=== PATIENT | male | born 1955 | race Caucasian/White ===

== ENCOUNTER 2021-09-30 11:29 | Outpatient (REF) | payer MEDICAID, SELFPAY ==
[2021-09-30 12:02] LABS: MANUAL DIFF FLAG NO
[2021-09-30 12:12] LABS: Basophils Percent Auto 0.4 % (0-2); Eosinophils Absolute Auto 0.1 X10*3/uL (0.0-0.4); Eosinophils Percent Auto 0.6 % (0-4); Hematocrit 43.7 % (42.0-52.0); Hemoglobin 14.1 g/dl (14.0-18.0); Imm Gran Abs Auto 0.03 X10*3/uL (0.00-0.03); Imm Gran Pct Auto 0.3 % (0.0-0.4); Lymphocytes Absolute Auto 0.8 X10*3/uL (1.2-4.9); Mean Corpuscular HGB Conc 32.3 g/dl (31.0-36.0); Mean Corpuscular Volume 89.9 fL (80.0-98.0); Monocytes Absolute Auto 0.6 X10*3/uL (0.1-1.2); Monocytes Percent Auto 6.8 % (2-11); Neutrophils Absolute Auto 7.5 x10*3/uL (2.0-8.3); Neutrophils Percent Auto 82.9 % (45-73); Platelet Count 278 X10*3/uL (160-400); Red Blood Count 4.86 X10*6/uL (4.60-5.80); Red Cell Distribution Width 14.1 % (11.0-16.0)
[2021-09-30 12:20] LABS: Estimated Average Glucose 111 mg/dL; Hemoglobin A1c % 5.5 %
[2021-09-30 12:35] LABS: Alanine Aminotransferase 21 U/L (0-40); Albumin Level 4.5 g/dL (3.5-5.0); Alkaline Phosphatase 102 U/L (39-117); Anion Gap 14 (12-20); Aspartate Amino Transferase 31 U/L (5-37); Bilirubin Total 0.8 mg/dL (0.0-1.0); Blood Urea Nitrogen 14 mg/dL (9-16); Calcium 9.8 mg/dL (8.4-10.2); Carbon Dioxide 30 mmol/L (22-29); Chloride 102 mmol/L (96-108); Cholesterol 152 mg/dL; Estimated Glomerular Filt Rate > 60; Glucose Random 105 mg/dL (60-115); HDL Cholesterol 58 mg/dL; LDL Cholesterol Calculated 80 mg/dl; Potassium 4.2 mmol/L (3.3-5.1); Sodium 142 mmol/L (135-145); Total Protein 8.1 g/dL (6.5-8.0); Triglycerides 71 mg/dL
[2021-10-02 15:47] LABS: TS Negative Control Passed; TS Panel A 0; TS Panel B 0; TS Positive Control Passed; TSpotTB Negative (Negative)
[2021-10-03 14:42] LABS: HIV RNA PCR Qn Copies NOT DETECTED copies/mL (NOT DETECTED); HIV RNA PCR Qn Log Copies NOT DETECTED (NOT DETECTED)
[2021-10-03 16:41] LABS: Absolute CD3 Count 497 cells/uL (840-3060); Absolute CD4 Count 186 cells/uL (490-1740); Absolute CD8 Count 291 cells/uL (180-1170); Absolute Lymphocytes 839 cells/uL (850-3900); CD4 CD8 Ratio 0.64 (0.86-5.00); Percent CD3 Cells 59 % (57-85); Percent CD4 Cells 22 % (30-61); Percent CD8 Cells 35 % (12-42)
== END 2021-09-30 11:30 | disposition home or self-care (01) ==
LOC: HO.LAB 11:29
PROVIDERS: Visit Provider Registered Nurse Community Health
DX: Z11.1 Encounter for screening for respiratory tuberculosis (principal); B20 Human immunodeficiency virus [HIV] disease
CPT/HCPCS: 80053; 80061; 83036; 85025; 86140; 86359; 86360; 86481; 87536

== ENCOUNTER 2023-01-26 13:44 | Emergency (ER) | payer MEDICAID, SELFPAY ==
[2023-01-26 13:50] VITALS: BP 160/82; PULSE 92; O2SAT 97
[2023-01-26 13:55] VITALS: BP 110/78; PULSE 89; RESP 18; TEMP 36.6; O2SAT 95; BMI 26.6
--- NOTE | 2023-01-26 13:56 | PC.NURSE ---
security at bedside to change pt over, belongings in decon
[2023-01-26 13:58] VITALS: PULSE 89
--- NOTE | 2023-01-26 15:07 | ED.GENADULT ---
HPI - General Adult General Chief complaint: ETOH/Substance Use Stated complaint: OVERDOSE Time Seen by Provider: 01/26/23 14:39 Source: patient, EMS, RN notes reviewed and old records reviewed Mode of arrival: EMS History of Present Illness HPI narrative: 67-year-old male with a past medical history of polysubstance abuse presenting to the ED via EMS s/p accidental heroin overdose [employer]. Patient was discharged from [facility] this morning. Patient admits to snorting 2 bags of heroin & taking 4 pills of 5 mg Percocet. patient was given 4 mg of intranasal Narcan by bystander with positive result. Denies SI/HI. Denies injury/ fall or trauma, headache, abdominal pain, chest pain/shortness of breath. Related Data Allergies Allergy/AdvReac Type Severity Reaction Status Date / Time No Known Drug Allergies Allergy Unknown UNKNOWN Unverified 01/29/20 15:36 Review of Systems Review of Systems: Constitutional: No Fever, No Chills, No Fatigue, No Malaise ENT/Mouth: No sore throat, No Rhinorrhea, No Swallowing Difficulty Eyes: No Eye Pain, No Swelling, No Redness, No Vision Changes Cardiovascular: No Chest Pain, No SOB, No Palpitations Respiratory: No Cough, No Dyspnea Gastrointestinal: No Nausea, No Vomiting, No Diarrhea, No Constipation, No Abdominal pain Musculoskeletal: No joint pain, No Myalgias Skin: No Skin Lesions, No rash Neuro: No Weakness, No Headache Psych: No Anxiety/Panic, No Depression, No SI/HI/AH/VH,+ Social Issues Yes all other systems are reviewed and are negative Constitutional: Constitutional: Reports as per [facility] Past Medical History Attestation statement: The following information was validated with the patient. Source: old records reviewed Social History Social History Advance Directives: No Physical Exam ED Vital Signs: Vital Signs - 24 hr 01/26/23 13:55 Temperature 97.9 F Pulse Rate 89 Respiratory Rate 18 Blood Pressure 110/78 Pulse Oximetry 95 Oxygen Delivery Method Room Air BMI result Body Mass Index 26.6 Const General: cooperative, no acute distress, alert and awake Orientation/consciousness: patient oriented x3 Limitations: no limitations HENMT Head: Yes normal to inspection, Yes atraumatic, No Barahona's sign and No raccoon eyes Ears: hearing grossly normal bilaterally General nose exam: Normal external nose present Face and sinus: Yes normal facial exam Throat: Yes posterior oropharynx normal Eyes General: appearance normal, both eyes and all related structures Pupils: Equal, round and reactive pupils present and Pinpoint pupils bilaterally EOM: EOMs intact bilaterally Neck Neck: Yes normal visual inspection and Yes no meningeal signs Resp Effort & Inspection: normal respiratory effort and no respiratory distress Auscultation: clear to auscultation bilaterally Cardio Rate: regular rate Heart sounds: S1 normal heart sound present and S2 normal heart sound present GI Inspection: Yes normal to inspection Palpation (GI): Soft to palpation, nontender, no guarding and not rigid General: Yes no CVA tenderness Back/Spine/Pelvis Other: No midline cervical/thoracic/lumbar spinous tenderness/step-off or deformity Back: no CVA tenderness Skin Rashes: no rashes Wounds: no wounds Neuro General: patient oriented x3, gait normal, tone normal, moves all extremities, no meningeal signs and CN's II-XI intact bilaterally Cranial nerves: Yes CN's II-XII intact bilaterally and Yes Equal, round and reactive pupils present Gait exam (Neuro): Normal gait present Extrem General: Yes normal to inspection Psych Attitude: cooperative Thought content: suicidality and no homicidality Course Course Course Narrative: recovery team evaluated patient, declined any services, patient also would not be accepted to any detox is at this time as was just discharged from [facility] this AM. patient will be discharged home with Narcan to go > patients Aunt is in the ED with him. Patient's friend will be picking him up Results discussed with patient including worrisome signs and symptoms and strict return precautions, and when to return to the emergency department. They verbalized understanding and feel safe for discharge at this time. Medications Administered Discontinued Medications Generic Name Dose Route Start Last Admin Trade Name Freq PRN Reason Stop Dose Admin Naloxone HCl 8 mg 01/26/23 15:13 01/26/23 16:15 Naloxone Hcl Nasal Take Home 4 Mg [place] NOSTRILALT 01/26/23 15:14 8 mg ONCE ONE Administration Medical Decision Making Medical Decision Making [facility] Narrative: 67-year-old male with a past medical history of polysubstance abuse presenting to the ED via EMS s/p accidental heroin overdose [employer] INS[employer]. On exam vital signs stable, NAD, awake and alert since ED arrival, cooperative, ambulating with steady gait. denies SI/HI. Patient abdomen he only took 4 pills of Percocet, patient is clear, minimal risk/concern for Tylenol overdose. will observe and re-evaluate Please refer to course for remaining clinical decision making, interpretation of labs/imaging results, and discussions with consultants and/or family members. Differential Diagnosis Differential Diagnoses: The differential diagnosis associated with the presentation includes As above Admission/Observation Consideration of admission/observation: Escalation of care including admission/observation considered Lab Data MDM Lab Attestation statement: I reviewed the patient's lab results. Radiology Impression Discussion of test interpretation with radiology: I have reviewed the radiologist's reading. External Record Review External record reviewed: Inpatient record, Office record, Outpatient record, Prior outpatient labs, Prior outpatient radiology, Primary care record and Outside ED record Tests considered The following testing was considered but not selected: As above Discharge Plan Discharge Clinical Impression: Accidental overdose, Polysubstance abuse Patient Disposition: Home, Self-Care Instructions: Polysubstance Abuse (ED), Adult Overdose (ED) Additional Instructions: AVOID ALCOHOL AND DRUG USE THIS CAN KILL YOU Your being sent home with Narcan to go Consider detox Follow-up with your doctor Referrals: [facility] [Provider Group] [facility] [Outside] [place],[facility] [Primary Care Provider] - Interventions: ED Discharge Assessment Last Done: 01/26/23 16:24 Discharge Date/Time: 01/26/23 16:25
--- NOTE | 2023-01-26 15:35 | HO.SUDE ---
Met with pt in ED6H to complete SUDE, pt here in ED post overdose. Pt reports having been in treatment at [facility] for the past 5 weeks and discharged from there this morning. Since discharge pt had orally taken 4 5mg Percocet he was prescribed in addition to 2 bags of heroin, stating he thought it would be ok as he used to shoot 50 bags a day. This will be pts 3rd OD with the last 2 being over 15 years ago. Pt had been on MAT in the past but feels it is not a good fit for him and isn't interested in starting. At this time pt is not interested in ATS or any recovery resources as he is too scared to use again after this OD and has no intention to keep using. T/W reviewed harm reduction and overdose prevention, pt has no other questions or concerns at this time and would like to go home and his family is sober and supportive. Provider aware.
[2023-01-26] MEDS: Naloxone HCl Nasal TAKE HOME 4 MG SPRAY 8 MG NOSTRILALT (16:15)
== END 2023-01-26 16:25 | disposition home or self-care (01) ==
PROVIDERS: Emergency Provider Emergency Medicine Emergency Medical Services
DX: T40.1X1A Poisoning by heroin, accidental (unintentional), initial encounter (principal); F19.10 Other psychoactive substance abuse, uncomplicated; Y92.9 Unspecified place or not applicable
CPT/HCPCS: 99284

== ENCOUNTER 2023-01-31 20:50 | Emergency (ER) | payer MEDICAID, SELFPAY ==
--- NOTE | ~2023-01-31 | CT_ITS ---
EXAMINATION: CT HEAD WITHOUT CONTRAST CLINICAL INFORMATION: Head trauma COMPARISON: CT abdomen from 07/26/2013 TECHNIQUE: Contiguous axial imaging was performed from the skull base to vertex without intravenous administration of contrast. This CT examination was performed using dose optimization techniques as appropriate, variously including the following: *Automated exposure control *Adjustment of mA and/or kV according to patient size (this includes techniques or standardized protocols for targeted exams where dose is matched to indication/reason for exam; i.e. extremities or head) *Use of iterative reconstruction technique DLP: 1219 mGy-cm FINDINGS: Streak artifact from frontal osseous structures slightly limits evaluation. Chronic white matter small vessel ischemic changes. There is no evidence of acute intracranial hemorrhage or territorial infarction. No abnormal mass effect or midline shift is seen. Neumann to white matter differentiation is well preserved. No extra-axial fluid collections are identified. The ventricles are normal in size. There is no abnormal attenuation within the brain parenchyma. The osseous structures and soft tissues are normal. The mastoid air cells and visualized portions of the paranasal sinuses are well aerated. CT/CT cervical spine wo IV con IMPRESSION: 1. No acute intracranial pathology. 2. Chronic white matter small vessel ischemic changes. EXAMINATION: Noncontrast CT scan of the cervical spine. INDICATION: Head trauma COMPARISON: CT cervical spine from 03/17/2014 TECHNIQUE: Helical, multidetector axial images were obtained from the occiput to the upper thorax. Coronal and sagittal reformats of the cervical spine were provided for interpretation. DLP: 1219 mGy-cm FINDINGS: No acute fractures or dislocations of the cervical spine are seen. Postsurgical changes of C4-C5. Straightening of the normal cervical curvature. Multilevel degenerative changes. Anatomic alignment and positioning of the vertebral bodies and posterior elements is noted. The atlantoaxial joint and craniovertebral articulations are normal without evidence of subluxation. There is no prevertebral soft tissue swelling. The thyroid gland and visualized portions of the lung apices and mediastinum are unremarkable. IMPRESSION: 1. No acute visible fracture or dislocation. 2. Postsurgical changes of C4-C5. 3. Straightening of the normal cervical curvature. 4. Multilevel degenerative changes.
--- NOTE | ~2023-01-31 | XR_ITS ---
EXAMINATION: XR LUMBOSACRAL SPINE CLINICAL INFORMATION: Fall. Back pain. COMPARISON: None available. TECHNIQUE: Three views of the lumbosacral spine. FINDINGS: There is straightening of the expected lumbar lordosis. There is moderate L4-L5 and L5-S1 disc degenerative change and mild disc degenerative change throughout the remaining lumbar spine with loss of disc space, endplate change and osteophytes. There is mild L3-L4 to L5-S1 facet osteoarthritic hypertrophic change . Soft tissues are unremarkable. XR/XR lumbar spine 2-3V IMPRESSION: Moderate L4-L5 and L5-S1 disc degenerative change and mild disc degenerative change throughout the remaining lumbar spine and mid to lower lumbar facets with straightening of the expected lumbar lordosis. No fracture identified .
[2023-01-31 21:16] VITALS: BP 136/71; BP 143/93; PULSE 72; PULSE 80; RESP 18; TEMP 36.7; O2SAT 98; O2SAT 99; BMI 27.0
--- NOTE | 2023-01-31 21:26 | PC.NURSE ---
pt requesting to leave, this RN made provider MD Srinivasa and FRANCISCA Soriano aware
[2023-01-31] MEDS: Naloxone HCl Nasal TAKE HOME 4 MG SPRAY 8 MG NOSTRILALT (22:12)
[2023-01-31] MEDS: Bacitracin Oint 0.9 GM PACKET 1 APPL TOPICAL (22:13)
[2023-01-31] MEDS: Diphth,Pertus(ACell),Tet Adult 0.5 ML SYRINGE IM (22:13)
--- NOTE | 2023-01-31 22:29 | ED.FALL ---
HPI - Fall General Chief Complaint: Fall Stated Complaint: Unwit. fall, hit face on concrete, pos poly pharm Time Seen by Provider: 01/31/23 21:28 Source: patient, EMS, RN notes reviewed and old records reviewed Mode of arrival: EMS History of Present Illness HPI Narrative: 67-year-old male with the past medical history of polysubstance abuse presenting to the ED via EMS s/p headache, facial injury/abrasions and back pain s/p accidental overdose on heroin [employer]. Patient admits to snorting 1 bag of heroin and taking 2 pills of 5 mg Percocet, suspects nodding off and falling into cement plant [place]. Unknown LOC. Patient was given 2 mg of intranasal Narcan by EMS with positive result. Denies SI/HI. Denies neck pain, CP/SOB, abdominal pain, incontinence/retention. Tetanus unknown MD complaint: fall Related Data Allergies Allergy/AdvReac Type Severity Reaction Status Date / Time No Known Drug Allergies Allergy Unknown UNKNOWN Unverified 01/29/20 15:36 Review of Systems Review of Systems: Constitutional: No Fever, No Chills, No Night Sweats, No Fatigue, No Malaise ENT/Mouth: No Ear Pain, No Nasal Congestion, No sore throat Eyes: No Eye Pain, No Swelling, No Redness, No Vision Changes Cardiovascular: No Chest Pain, No SOB, No Palpitations Respiratory: No Cough, No Sputum, No Dyspnea Gastrointestinal: No Nausea, No Vomiting, No Diarrhea, No Constipation, No Abdominal pain Genitourinary: No Dysuria, No Urinary Frequency, No Hematuria, No Urinary Incontinence/retention, No Flank Pain Musculoskeletal: +joint pain, No Myalgias, No Joint Swelling Skin: + Skin Lesions, No rash Neuro: No Weakness, No Numbness, No Paresthesias, No Loss of Consciousness, No Dizziness, + Headache Psych: No Anxiety/Panic, No Depression, No SI/HI/AH/VH, No Social Issues Yes all other systems are reviewed and are negative Constitutional: Constitutional: Reports as per HPI Neurologic: Denies Abnormal speech present [facility] Past Medical History Attestation statement: The following information was validated with the patient. Source: old records reviewed Social History Social History Advance Directives: No Advance Directives Information Provided: No Physical Exam Vital Signs: Vital Signs: Last Vital Signs Temp 98.1 F 01/31/23 21:16 Pulse 72 01/31/23 21:16 Resp 18 01/31/23 21:16 BP 136/71 01/31/23 21:16 Pulse Ox 99 01/31/23 21:16 O2 Del Method Room Air 01/31/23 21:16 BMI result Body Mass Index 27.0 Const: General: no acute distress, alert and awake Orientation/consciousness: patient oriented x3 Limitations: no limitations HEENT: Other: + multiple superficial abrasions noted to forehead, nasal bridge. No palpable step-off. EOMs intact without entrapment. Head: Yes normal to inspection, No Barahona's sign and No raccoon eyes Ears: hearing grossly normal bilaterally General nose exam: no epistaxis Face and sinus: Yes normal facial exam Mouth: Normal oral and palatal mucosa present Eyes: Other: Bilaterally pinpoint pupils. Reactive. General: appearance normal, both eyes and all related structures EOM: EOMs intact bilaterally and no movement deficit Neck: Other: C-collar in place Neck: Yes normal visual inspection and Yes no meningeal signs Chest: Chest palpation & inspection: normal inspection of the chest Resp: Effort & Inspection: normal respiratory effort and no respiratory distress Cardio: Rate: regular rate Heart sounds: S1 normal heart sound present and S2 normal heart sound present GI: Inspection: Yes normal to inspection Palpation (GI): Soft to palpation, nontender, no guarding and not rigid : General: Yes no CVA tenderness Back/Spine/Pelvis: Other: No midline cervical/thoracic spinous tenderness/step-off or deformity. + upper lumbar midline and paraspinal tenderness noted with palpable muscle spasming. No erythema/ecchymosis. Back: no CVA tenderness Skin: Rashes: no rashes Neuro: Other: Strength intact throughout. No saddle anesthesia. Sensation intact to light touch. Neurovascular intact distally General: patient oriented x3, tone normal, moves all extremities, no meningeal signs, no focal motor deficits and CN's II-XI intact bilaterally Cranial nerves: Yes CN's II-XII intact bilaterally Cognition (Neuro): normal cognition Speech: No Abnormal speech present Motor exam (neuro): 5/5 motor strength present throughout Extrem: General: Yes normal to inspection Course Course Course Narrative: CT head/brain wo IV con IMPRESSION: 1. No acute intracranial pathology. 2. Chronic white matter small vessel ischemic changes. CT cervical spine IMPRESSION: 1. No acute visible fracture or dislocation. 2. Postsurgical changes of C4-C5. 3. Straightening of the normal cervical curvature. 4. Multilevel degenerative changes. XR lumbar spine 2-3V IMPRESSION: Moderate L4-L5 and L5-S1 disc degenerative change and mild disc degenerative change throughout the remaining lumbar spine and mid to lower lumbar facets with straightening of the expected lumbar lordosis. No fracture identified . > bacitracin and dressing applied to wounds. Patient not interested in detox. Will be sent home with Narcan to go Results discussed with patient including worrisome signs and symptoms and strict return precautions, and when to return to the emergency department. They verbalized understanding and feel safe for discharge at this time. Medications Administered Discontinued Medications Generic Name Dose Route Start Last Admin Trade Name Juliánq PRN Reason Stop Dose Admin Acetaminophen 650 mg 01/31/23 22:28 01/31/23 22:46 Acetaminophen 325 Mg Tablet PO 01/31/23 22:29 650 mg ONCE ONE Administration Bacitracin 1 appl 01/31/23 22:02 01/31/23 22:13 Bacitracin Oint 0.9 Gm Packet TOPICAL 01/31/23 22:03 1 appl ONCE ONE Administration Protocol Diphtheria/Tetanus/Acell Pertussis 0.5 ml 01/31/23 22:02 01/31/23 22:13 Diphth,Pertus(Acell),Tet Adult 0.5 Ml Syringe IM 01/31/23 22:03 0.5 ml .ONCE ONE Administration Naloxone HCl 8 mg 01/31/23 22:02 01/31/23 22:12 Naloxone Hcl Nasal Take Home 4 Mg [place] NOSTRILALT 01/31/23 22:03 8 mg ONCE ONE Administration Medical Decision Making Medical Decision Making MDM Narrative: 67-year-old male with the past medical history of polysubstance abuse presenting to the ED via EMS s/p headache, facial injury/abrasions and back pain s/p accidental overdose on heroin [employer]. On exam vital signs stable, NAD, nontoxic appearing, bilaterally pinpoint pupils, awake and alert, + facial trauma with multiple abrasions. + midline/paraspinal lumbar tenderness. No red flag symptoms. No saddle anesthesia. Denies SI/HI. Concern for accidental overdose/polysubstance abuse vs ICH vs fractures. Low suspicion for cauda equina/cord compression, CVA, intra-abdominal/intrathoracic injury/bleeding Plan: Head/C-spine CT, back x-ray, GARCIA, update tetanus, Narcan to go home Please refer to course for remaining clinical decision making, interpretation of labs/imaging results, and discussions with consultants and/or family members. Differential Diagnosis Differential Diagnoses: The differential diagnosis associated with the presentation includes As above Admission/Observation Consideration of admission/observation: Escalation of care including admission/observation considered Lab Data MDM Lab Attestation statement: I reviewed the patient's lab results. Radiology Impression Discussion of test interpretation with radiology: I have reviewed the radiologist's reading. Independent Historian Clinical information obtained from an independent historian. History obtained from or confirmed by: EMS External Record Review External record reviewed: Inpatient record, Office record, Outpatient record, Prior outpatient labs, Prior outpatient radiology, Primary care record and Outside ED record Tests considered The following testing was considered but not selected: As above Prescription Management I considered prescription management with: Pain Medication Social Determinants Patient?s care significantly limited by Social Determinants of Health including: Inadequate housing, Low income, Alcoholism and drug addiction in family, Problems related to primary support group and Other Social Determinant of Health Discharge Plan Discharge Clinical Impression: Accidental overdose, Head injury, Abrasion, Back pain Patient Disposition: Home, Self-Care Instructions: Head Injury (ED), Back Pain (ED), Adult Overdose (ED) Additional Instructions: Keep your wounds clean. Apply bacitracin twice daily AVOID DRUG AND ALCOHOL USE THIS CAN KILL YOU. YOU ALMOST TODAY. Your imaging studies are reassuring. You do have some arthritic changes of her back Take Tylenol Motrin as needed Apply heat packs If pain persists or worsens, you have thoughts of hurting herself or others or wounds look infected return to the ED Follow-up with your doctor Referrals: [facility] [Provider Group] [facility] [Outside] Physician,Unknown J [Primary Care Provider] - Interventions: ED Discharge Assessment Last Done: 02/01/23 01:02 Discharge Date/Time: 02/01/23 01:03
[2023-01-31] MEDS: Acetaminophen 325 MG TABLET 650 MG PO (22:46)
== END 2023-02-01 01:03 | disposition home or self-care (01) ==
PROVIDERS: Emergency Provider Emergency Medicine Emergency Medical Services
DX: S00.91XA Abrasion of unspecified part of head, initial encounter (principal); S39.92XA Unspecified injury of lower back, initial encounter; T40.1X1A Poisoning by heroin, accidental (unintentional), initial encounter; R51.9 Headache, unspecified; M54.2 Cervicalgia; W01.10XA Fall on same level from slipping, tripping and stumbling with subsequent striking against unspecified object, initial encounter; Y93.9 Activity, unspecified; Y92.9 Unspecified place or not applicable; Y99.9 Unspecified external cause status; Z79.899 Other long term (current) drug therapy; Z23 Encounter for immunization
CPT/HCPCS: 70450; 72100; 72125; 90471; 90715; 99283; 99284